=== PATIENT | male | born 1985 ===

== ENCOUNTER 2017-02-20 13:37 | Emergency (ER) | payer MEDICARE, MEDICAID ==
[2017-02-20 13:37] VITALS: BMI 27.1
[2017-02-20 13:56] VITALS: TEMP 99.1
--- NOTE | 2017-02-20 14:04 | ED PDOC ---
Arrival/HPI - General Chief Complaint: GI Problem Time Seen by Provider: 02/20/17 14:01 Historian: Patient - History of Present Illness Narrative History of Present Illness (Text): 02/20/17 14:00 Sammy Garcia is a 31 year old male, whose past medical history includes schizo- affective disorder, who presents to the emergency department complaining of vomiting x3 and diarrhea since last night. Patient reports he works at [employer] and had a meal which caused him to throw up and have abdomen pain. Ever since then he has been having diarrhea. No other complaints were made. Time/Duration: 24 hours Symptom Onset: Sudden Symptom Course: Unchanged Context: Work Past Medical History - Provider Review Nursing Documentation Reviewed: Yes - Infectious Disease Hx of Infectious Diseases: None - Psychiatric Hx Bipolar Disorder: Yes Hx Schizophrenia: Yes Hx Substance Use: Yes Other/Comment: skizo affective disorder - Anesthesia Hx Anesthesia: No Hx Anesthesia Reactions: No - Suicidal Assessment Feels Threatened In Home Enviroment: No Family/Social History - Physician Review Nursing Documentation Reviewed: Yes Family/Social History: Unknown Family HX Smoking Status: Heavy Smoker > 10 Cigarettes Daily Hx Alcohol Use: No Hx Substance Use: Yes Substance used: marijuana Allergies/Home Meds Allergies/Adverse Reactions: Allergies ibuprofen [From Motrin] Allergy (Verified 02/20/17 13:54) RASH shellfish derived Allergy (Verified 02/20/17 13:54) RASH dextromethorphan Adverse Reaction (Verified 02/20/17 13:54) RASH Home Medications: Home Meds Medication Instructions Recorded Confirmed Divalproex [Depakote ER] 1,000 mg PO DAILY 06/25/13 11/29/15 Paliperidone Palmitate [Invega 150 mg IM 11/29/15 Sustenna] Benztropine [Cogentin] 1 tab PO DAILY 02/20/17 02/20/17 Review of Systems - Review of Systems Constitutional: absent: Fevers Eyes: absent: Vision Changes Respiratory: absent: SOB Cardiovascular: absent: Chest Pain Gastrointestinal: Abdominal Pain, Diarrhea, Vomiting Genitourinary Male: absent: Dysuria Musculoskeletal: absent: Back Pain Skin: absent: Rash Neurological: absent: Headache, Dizziness Endocrine: absent: Polyuria Hemo/Lymphatic: absent: Easy Bleeding Physical Exam Vital Signs Reviewed: Yes Vital Signs Temp Pulse Resp BP Pulse Ox 02/20/17 13:52 99.1 F 107 H 18 115/67 98 Temperature: Afebrile Blood Pressure: Normal Pulse: Tachycardic Respiratory Rate: Normal Appearance: Positive for: Well-Appearing, Non-Toxic, Comfortable Pain Distress: None Mental Status: Positive for: Alert and Oriented X 3 - Systems Exam Head: Present: Atraumatic, Normocephalic Pupils: Present: PERRL Extroacular Muscles: Present: EOMI Conjunctiva: Present: Normal Mouth: Present: Moist Mucous Membranes Neck: Present: Normal Range of Motion Abdomen: Present: Tenderness (mild tenderness in epigastric region ), Normal Bowel Sounds. No: Distention, Peritoneal Signs Neurological: Present: GCS=15, CN II-XII Intact, Speech Normal Skin: Present: Warm, Dry, Normal Color. No: Rashes Psychiatric: Present: Alert, Oriented x 3, Normal Insight, Normal Concentration Medical Decision Making ED Course and Treatment: 02/20/17 Impression: 31 year old male with mild epigastric tenderness. Plan: -- Labs -- Reassess and disposition Progress Notes: - Lab Interpretations Lab Results: 02/20/17 14:00 02/20/17 14:00 Lab Results 02/20/17 14:00: Sodium 139, Potassium 4.0, Chloride 101, Carbon Dioxide 26, Anion Gap 17, BUN 21, Creatinine 0.9, Est GFR ( Amer) > 60, Est GFR (Non- Af Amer) > 60, Random Glucose 112 H, Calcium 9.4, Total Bilirubin 0.6, AST 29, ALT 38, Alkaline Phosphatase 64, Total Protein 7.6, Albumin 4.5, Globulin 3.1, Albumin/Globulin Ratio 1.5, Lipase 25 02/20/17 14:00: WBC 9.2, RBC 4.71, Hgb 14.9, Hct 43.2, MCV 91.7, MCH 31.6, MCHC 34.5, RDW 13.6, Plt Count 197, MPV 9.6, Gran % 81.5 H, Lymph % (Auto) 10.9 L, [place] % (Auto) 7.3 H, Eos % (Auto) 0.2 L, Baso % (Auto) 0.1, Gran # 7.53 H, Lymph # 1.0 L, [place] # 0.7 H, Eos # 0.0, Baso # 0.01 I have reviewed the lab results: Yes - Medication Orders Current Medication Orders: Sodium Chloride (Sodium Chloride 0.9%) 1,000 mls @ 999 mls/hr IV .Q1H1M STA Stop: 02/20/17 15:06 Last Admin: 02/20/17 14:08 Dose: 999 mls/hr eMAR Start Stop Document 02/20/17 14:08 SE (Rec: 02/20/17 14:08 SE [id number]) Intravenous Solution Start Date 02/20/17 Start Time 14:08 - Scribe Statement The provider has reviewed the documentation as recorded by the Onesimoibe Lashon Moreno Provider Scribe Attestation: All medical record entries made by the Scribe were at my direction and personally dictated by me. I have reviewed the chart and agree that the record accurately reflects my personal performance of the history, physical exam, medical decision making, and the department course for this patient. I have also personally directed, reviewed, and agree with the discharge instructions and disposition. Disposition/Present on Arrival - Present on Arrival History of DVT/PE: No History of Uncontrolled Diabetes: No Urinary Catheter: No History of Decub. Ulcer: No History Surgical Site Infection Following: None - Disposition Diagnosis: Gastroenteritis Disposition: HOME/ ROUTINE Patient Problems: Current Active Problems Problem Status Onset Gastroenteritis Acute Condition: GOOD Referrals: Stacey Mcmillan APN [Primary Care Provider] - Follow up with primary Forms: [facility] (Yemeni), WORK NOTE
[2017-02-20] MEDS ORDERED: Sodium Chloride 0.9% 1,000 ML IV STA (14:06)
[2017-02-20 14:19] LABS: BASO # 0.01 K/mm3 (0.0-2.0); BASO % 0.1 % (0.0-3.0); EOS % 0.2 % (1.5-5.0); GRAN # 7.53 (1.4-6.5); GRAN % 81.5 % (50.0-68.0); HEMATOCRIT 43.2 % (42.0-52.0); LYMPH % 10.9 % (22.0-35.0); MEAN CELL VOLUME 91.7 fl (80.0-105.0); MEAN CORPUSCULAR HEMOGLOBIN 31.6 pg (25.0-35.0); MEAN CORPUSCULAR HGB CONC 34.5 g/dl (31.0-37.0); MEAN PLATELET VOLUME 9.6 fl (7.0-11.0); MONO # 0.7 (0.1-0.6); MONO % 7.3 % (1.0-6.0); RED CELL DISTRIBUTION WIDTH 13.6 % (11.5-14.5); WHITE BLOOD COUNT 9.2 10^3/ul (4.5-11.0)
[2017-02-20 14:30] LABS: ALB/GLOB RATIO 1.5 (1.1-1.8); ALKALINE PHOSPHATASE 64 U/L (38-126); ALT/SGPT 38 U/L (7-56); AST/SGOT 29 U/L (17-59); BILIRUBIN,TOTAL 0.6 mg/dL (0.2-1.3); BLOOD UREA NITROGEN 21 mg/dL (7-21); CALCIUM 9.4 mg/dL (8.4-10.5); CARBON DIOXIDE 26 mmol/L (21-33); CHLORIDE 101 mmol/L (98-107); GFR AFRICAN-AMERICAN > 60; GLUCOSE,RANDOM 112 mg/dL (70-110); LIPASE 25 U/L (23-300); SODIUM 139 mmol/L (132-148); TOTAL PROTEIN 7.6 g/dL (5.8-8.3)
[2017-02-20 14:58] VITALS: O2SAT 100
[2017-02-20 15:03] VITALS: BP 118/65; PULSE 79; RESP 18
== END 2017-02-20 15:03 | disposition home or self-care (01) ==
LOC: ED 13:37
DX: K52.9 Noninfective gastroenteritis and colitis, unspecified (principal); F17.210 Nicotine dependence, cigarettes, uncomplicated
CPT/HCPCS: 80053; 83690; 85025; 99284; J7030; J7040

== ENCOUNTER 2017-02-24 16:31 | Emergency (ER) | payer MEDICARE, MEDICAID ==
[2017-02-24 16:32] VITALS: BMI 27.1
[2017-02-24 16:42] VITALS: RESP 18; TEMP 98; O2SAT 95
--- NOTE | 2017-02-24 16:59 | ED PDOC ---
Arrival/HPI - General Chief Complaint: Back Pain Time Seen by Provider: 02/24/17 16:41 Historian: Patient - History of Present Illness Narrative History of Present Illness (Text): 02/24/17 16:48 31yo male who present with complaint of right sided lower back pain that radiates down to his leg x 3days. Notes pain is constant and worse with ambulation and movement. He applied ice hot to area with minimum relieve. 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 He denies trauma, focal weakness, urinary/fecal incontinence, saddle anesthesia, abdominal pain, urinary symptoms . Past Medical History - Provider Review Nursing Documentation Reviewed: Yes - Infectious Disease Hx of Infectious Diseases: None - Cardiac Hx Cardiac Disorders: No - Pulmonary Hx Respiratory Disorders: No - Neurological Hx Neurological Disorder: No - HEENT Hx HEENT Disorder: No - Renal Hx Renal Disorder: No - Endocrine/Metabolic Hx Endocrine Disorders: No - Hematological/Oncological Hx Blood Disorders: No - Integumentary Hx Dermatological Disorder: No - Musculoskeletal/Rheumatological Hx Musculoskeletal Disorders: No - Gastrointestinal Hx Gastrointestinal Disorders: No - Genitourinary/Gynecological Hx Genitourinary Disorders: No - Psychiatric Hx Bipolar Disorder: Yes Hx Schizophrenia: Yes Hx Substance Use: Yes Other/Comment: skizo affective disorder - Anesthesia Hx Anesthesia: No Hx Anesthesia Reactions: No - Suicidal Assessment Feels Threatened In Home Enviroment: No Family/Social History - Physician Review Nursing Documentation Reviewed: Yes Family/Social History: Unknown Family HX Smoking Status: Light Smoker < 10 Cigarettes Daily Hx Alcohol Use: No Hx Substance Use: Yes Substance used: marijuana Allergies/Home Meds Allergies/Adverse Reactions: Allergies ibuprofen [From Motrin] Allergy (Verified 02/24/17 16:40) RASH shellfish derived Allergy (Verified 02/24/17 16:40) RASH dextromethorphan Adverse Reaction (Verified 02/24/17 16:40) RASH Home Medications: Home Meds Medication Instructions Recorded Confirmed Divalproex [Depakote ER] 1,000 mg PO DAILY 06/25/13 02/24/17 Paliperidone Palmitate [Invega 150 mg IM Q30D 11/29/15 02/24/17 Sustenna] Benztropine [Cogentin] 1 tab PO DAILY 02/20/17 02/24/17 Review of Systems - Physician Review All systems were reviewed & negative as marked: Yes - Review of Systems Constitutional: Normal Eyes: Normal ENT: Normal Respiratory: Normal Cardiovascular: Normal Gastrointestinal: Normal Genitourinary Male: Normal Musculoskeletal: Back Pain Skin: Normal Neurological: Normal Endocrine: Normal Hemo/Lymphatic: Normal Psychiatric: Normal Physical Exam Vital Signs Reviewed: Yes Vital Signs Temp Pulse Resp BP Pulse Ox 02/24/17 18:07 86 18 121/71 95 02/24/17 16:41 98.0 F 91 H 18 123/76 95 Temperature: Afebrile Blood Pressure: Normal Pulse: Regular Respiratory Rate: Normal Appearance: Positive for: Well-Appearing, Non-Toxic, Comfortable Pain Distress: None Mental Status: Positive for: Alert and Oriented X 3 - Systems Exam Head: Present: Atraumatic, Normocephalic Pupils: Present: PERRL Extroacular Muscles: Present: EOMI Conjunctiva: Present: Normal Mouth: Present: Moist Mucous Membranes Neck: Present: Normal Range of Motion Respiratory/Chest: Present: Clear to Auscultation, Good Air Exchange. No: Respiratory Distress, Accessory Muscle Use Cardiovascular: Present: Regular Rate and Rhythm, Normal S1, S2. No: Murmurs Abdomen: Present: Normal Bowel Sounds. No: Tenderness, Distention, Peritoneal Signs Back: Present: Paraspinal Tenderness (Right side), Pain with Leg Raise (right leg). No: Midline Tenderness Upper Extremity: Present: Normal Inspection. No: Cyanosis, Edema Lower Extremity: Present: Normal Inspection. No: Edema Neurological: Present: GCS=15, CN II-XII Intact, Speech Normal Skin: Present: Warm, Dry, Normal Color. No: Rashes Psychiatric: Present: Alert, Oriented x 3, Normal Insight, Normal Concentration Medical Decision Making ED Course and Treatment: 02/25/17 00:49 PT was ambulatory and neurologically intact in ED. On re evaluation he states he feels better. LS was negative He was DC home with a rx of Ibuprofen and flexeril. Advised to rest, apply warm compress/shower to area. Follow up with the PMD. TRT ED for any new or worsening symptoms. - RAD Interpretation Radiology Orders: 02/24/17 16:47 LS SPINE WITH OBL > 18 YRS OLD [RAD] Stat - Medication Orders Current Medication Orders: Discontinued Medications Cyclobenzaprine HCl (Flexeril) 10 mg PO STAT STA Stop: 02/24/17 16:49 Last Admin: 02/24/17 17:19 Dose: 10 mg Ketorolac Tromethamine (Toradol) 60 mg IM STAT STA Stop: 02/24/17 16:49 Last Admin: 02/24/17 17:19 Dose: 60 mg MAR Pain Assessment Document 02/24/17 17:19 OCS (Rec: 02/24/17 17:20 OCS [id number]) Pain Reassessment Is this a pain reassessment? Yes Sleep Is patient sleeping during reassessment? No Presence of Pain Presence of Pain Yes Pain Scale Used Pain Scale Used Numeric Location Left, Right or Bilateral Left Upper or Lower Lower Pain Location Body Site Back Description Description Constant Intensity of Pain at present 8 IM Administration Charges Document 02/24/17 17:19 OCS (Rec: 02/24/17 17:20 OCS [id number]) Injection Site MAR Injection Site Right Deltoid Charges for Administration # of IM Administrations 1 Disposition/Present on Arrival - Present on Arrival Any Indicators Present on Arrival: No History of DVT/PE: No History of Uncontrolled Diabetes: No Urinary Catheter: No History of Decub. Ulcer: No History Surgical Site Infection Following: None - Disposition Have Diagnosis and Disposition been Completed?: Yes Diagnosis: Back pain, Radiculopathy Disposition: HOME/ ROUTINE Disposition Time: 18:55 Patient Plan: Discharge Condition: STABLE Discharge Instructions (ExitCare): Back Pain (ED) Additional Instructions: Follow up with your doctor Rest and apply warm compress to area Return to ED for any new or worsening symptoms Prescriptions: Cyclobenzaprine [Cyclobenzaprine HCl] 10 mg PO TID #10 tab Naproxen [Naprosyn] 500 mg PO BID #20 tablet Ref[place]: [facility] [place] - Follow up with primary Forms: [email or web address] [facility] (Armenian), WORK NOTE
[2017-02-24 18:08] VITALS: BP 121/71; PULSE 86
--- NOTE | 2017-02-25 08:24 | RAD ---
PROCEDURE: Radiographs of the Lumbar Spine. HISTORY: back pain COMPARISON: No prior. FINDINGS: BONES: Normal alignment. No listhesis. No fracture. DISC SPACES: Unremarkable. OTHER FINDINGS: None. IMPRESSION: Unremarkable radiographs of the lumbar spine.
== END 2017-02-24 19:29 | disposition home or self-care (01) ==
LOC: ED 16:31
DX: M54.5 Low back pain (principal); M54.10 Radiculopathy, site unspecified; F17.210 Nicotine dependence, cigarettes, uncomplicated
CPT/HCPCS: 72110; 96372; 99282; J1885

== ENCOUNTER 2017-04-12 13:25 | Emergency (ER) | payer MEDICARE, MEDICAID ==
[2017-04-12 13:36] VITALS: BMI 25.0
[2017-04-12 13:40] VITALS: RESP 18; TEMP 98.9
--- NOTE | 2017-04-12 14:15 | ED PDOC ---
Arrival/HPI - General Chief Complaint: ENT Problem Time Seen by Provider: 04/12/17 14:11 Historian: Patient - History of Present Illness Narrative History of Present Illness (Text): 04/12/17 14:21 Pt p/w + 2 days onset of worsening left lower jaw/dental pain, at most pain is 8 -9/10 Time/Duration: < week Symptom Onset: Sudden Symptom Course: Worsening Quality: Cramping Severity Level: 8 Context: Home Past Medical History - Infectious Disease Hx of Infectious Diseases: None - Cardiac Hx Cardiac Disorders: No - Pulmonary Hx Respiratory Disorders: No - Neurological Hx Neurological Disorder: No - HEENT Hx HEENT Disorder: No - Renal Hx Renal Disorder: No - Endocrine/Metabolic Hx Endocrine Disorders: No - Hematological/Oncological Hx Blood Disorders: No - Integumentary Hx Dermatological Disorder: No - Musculoskeletal/Rheumatological Hx Musculoskeletal Disorders: No - Gastrointestinal Hx Gastrointestinal Disorders: No - Genitourinary/Gynecological Hx Genitourinary Disorders: No - Psychiatric Hx Bipolar Disorder: Yes Hx Schizophrenia: Yes Hx Substance Use: No Other/Comment: skizo affective disorder - Anesthesia Hx Anesthesia: No Hx Anesthesia Reactions: No - Suicidal Assessment Feels Threatened In Home Enviroment: No Family/Social History Smoking Status: Heavy Smoker > 10 Cigarettes Daily Hx Alcohol Use: No Hx Substance Use: No Substance used: marijuana Allergies/Home Meds Allergies/Adverse Reactions: Allergies ibuprofen [From Motrin] Allergy (Verified 02/24/17 16:40) RASH shellfish derived Allergy (Verified 02/24/17 16:40) RASH dextromethorphan Adverse Reaction (Verified 02/24/17 16:40) RASH Home Medications: Home Meds Medication Instructions Recorded Confirmed Divalproex [Depakote ER] 1,000 mg PO DAILY 06/25/13 04/12/17 Paliperidone Palmitate [Invega 150 mg IM Q30D 11/29/15 04/12/17 Sustenna] Benztropine [Cogentin] 1 tab PO DAILY 02/20/17 04/12/17 Physical Exam Vital Signs Temp Pulse Resp BP Pulse Ox 04/12/17 15:19 75 18 145/80 99 04/12/17 13:39 98.9 F 71 18 151/83 H 96 Medical Decision Making ED Course and Treatment: 04/12/17 14:43 Impression: dental pain/swelling i have consider all the differential diagnosis regarding pt's chief medical complaints/clinical findings, including but are not limited to: left dental pain /swelling A/P: left dental pain/swelling - pain control - abx - observe - supportive care Re-evaluation Time: 14:44 Reassessment Condition: Re-examined, Improving,but remains with symptoms - Medication Orders Current Medication Orders: Discontinued Medications Ibuprofen (Motrin Tab) 600 mg PO STAT STA Stop: 04/12/17 14:12 Last Admin: 04/12/17 14:27 Dose: Lidocaine HCl (Lidocaine 2% Viscous) 15 ml MM STAT STA Stop: 04/12/17 14:12 Last Admin: 04/12/17 14:26 Dose: 15 ml Penicillin V Potassium (Penicillin Vk Tab) 500 mg PO STAT STA PRN Reason: Protocol Stop: 04/12/17 14:13 Last Admin: 04/12/17 14:26 Dose: 500 mg Disposition/Present on Arrival - Present on Arrival Any Indicators Present on Arrival: No History of DVT/PE: No History of Uncontrolled Diabetes: No Urinary Catheter: No History of Decub. Ulcer: No History Surgical Site Infection Following: None - Disposition Have Diagnosis and Disposition been Completed?: Yes Diagnosis: Pain, dental, Dental infection Disposition: HOME/ ROUTINE Disposition Time: 14:45 Patient Plan: Discharge Condition: STABLE Discharge Instructions (ExitCare): Dental Caries (ED), Toothache (ED) Print Language: [place] Additional Instructions: Make sure to see your doctor in 1-2 days DRINK PLENTY OF FLUIDS STOP SMOKING take your medications as prescribed RETURN TO ED IF worse pain, cant breath, drooling, facial pain/swelling, persistent vomiting, high fever >101-102 for hours, altered behavior, unable to urinate, heavy/persistent bleeding, passing out, chest pain, or other medical emergencies Prescriptions: Ibuprofen [Motrin Tab] 600 mg PO TID PRN #30 tab PRN Reason: Pain, Mild (1-3) Lidocaine 2% Viscous 15 ml MM QID PRN #1 bottle PRN Reason: Pain, Mild (1-3) oxyCODONE/Acetaminophen [Percocet 5/325 mg Tab] 1 tab PO TID PRN #12 tab PRN Reason: Pain, Moderate (4-7) Penicillin VK [Penicillin VK Tab] 500 mg PO Q6H #39 tab Referrals: PCP,NO [Non-Staff] - Follow up with primary Forms: [employer] [facility] (B[place]amian), WORK NOTE
[2017-04-12 15:21] VITALS: BP 145/80; PULSE 75; O2SAT 99
== END 2017-04-12 15:21 | disposition home or self-care (01) ==
LOC: ED 13:25
DX: K08.89 Other specified disorders of teeth and supporting structures (principal); K04.7 Periapical abscess without sinus

== ENCOUNTER 2017-04-19 11:24 | Inpatient (IN) | payer MEDICARE, MEDICAID ==
[2017-04-19 11:24] VITALS: BMI 25.0
[2017-04-19] MEDS ORDERED: Oxycodone/Acetaminophen 5/325 mg Tab PO STA (11:49)
--- NOTE | 2017-04-19 11:52 | ED PDOC ---
Arrival/HPI - General Chief Complaint: Dental Pain Time Seen by Provider: 04/19/17 11:38 Historian: Patient - History of Present Illness Narrative History of Present Illness (Text): 04/19/17 11:40 A 31 year old male, with no significant past medical history, presents to the emergency department complaining of dental pain. Patient reports he had been unable to eat and pain has become unbearable. Pain and swelling has worsened since last visit here in the ER. Also, patient mentions having an upcoming dentist appointment 04/22/2017, now moved up to 05/11/2017. However, patient is unable to wait too long, so patient will be going to [place] with parents to be treated. No PMD Past Medical History - Provider Review Nursing Documentation Reviewed: Yes - Infectious Disease Hx of Infectious Diseases: None - Cardiac Hx Cardiac Disorders: No - Pulmonary Hx Respiratory Disorders: No - Neurological Hx Neurological Disorder: No - HEENT Hx HEENT Disorder: No - Renal Hx Renal Disorder: No - Endocrine/Metabolic Hx Endocrine Disorders: No - Hematological/Oncological Hx Blood Disorders: No - Integumentary Hx Dermatological Disorder: No - Musculoskeletal/Rheumatological Hx Musculoskeletal Disorders: No - Gastrointestinal Hx Gastrointestinal Disorders: No - Genitourinary/Gynecological Hx Genitourinary Disorders: No - Psychiatric Hx Psychophysiologic Disorder: Yes Hx Bipolar Disorder: Yes Hx Schizophrenia: Yes Hx Substance Use: No Other/Comment: SCHIZO AFFECTIVE - Anesthesia Hx Anesthesia: No - Suicidal Assessment Feels Threatened In Home Enviroment: No Family/Social History - Physician Review Nursing Documentation Reviewed: Yes Family/Social History: No Known Family HX Smoking Status: Heavy Smoker > 10 Cigarettes Daily Hx Alcohol Use: No Hx Substance Use: No Substance used: marijuana Allergies/Home Meds Allergies/Adverse Reactions: Allergies ibuprofen [From Motrin] Allergy (Verified 04/19/17 11:31) RASH shellfish derived Allergy (Verified 04/19/17 11:31) RASH dextromethorphan Adverse Reaction (Verified 04/19/17 11:31) RASH Home Medications: Home Meds Medication Instructions Recorded Confirmed Divalproex [Depakote ER] 1,000 mg PO DAILY 06/25/13 04/19/17 Paliperidone Palmitate [Invega 150 mg IM Q30D 11/29/15 04/19/17 Sustenna] Benztropine [Cogentin] 1 tab PO DAILY 02/20/17 04/19/17 Review of Systems - Physician Review All systems were reviewed & negative as marked: Yes - Review of Systems Constitutional: absent: Fevers, Night Sweats Respiratory: absent: SOB Musculoskeletal: Other (dental pain, facial swelling) Physical Exam Vital Signs Reviewed: Yes Vital Signs Temp Pulse Resp BP Pulse Ox 04/19/17 12:50 82 17 126/80 98 04/19/17 12:20 86 18 128/71 98 04/19/17 11:34 98.7 F 99 H 17 130/78 97 Temperature: Afebrile Blood Pressure: Normal Pulse: Regular Respiratory Rate: Normal Appearance: Positive for: Well-Appearing Pain Distress: None Mental Status: Positive for: Alert and Oriented X 3 - Systems Exam Head: Present: Tenderness (swollen lymph node tenderness), Swelling (swelling left side in jaw line), Other (patient's breath is foul-smelling due to infection) Pupils: Present: PERRL Extroacular Muscles: Present: EOMI Conjunctiva: Present: Normal Mouth: Present: Moist Mucous Membranes Neck: Present: Normal Range of Motion Respiratory/Chest: Present: Clear to Auscultation, Good Air Exchange. No: Respiratory Distress, Accessory Muscle Use Cardiovascular: Present: Regular Rate and Rhythm, Normal S1, S2. No: Murmurs Abdomen: Present: Normal Bowel Sounds. No: Tenderness, Distention, Peritoneal Signs Back: Present: Normal Inspection Upper Extremity: Present: Normal Inspection. No: Cyanosis, Edema Lower Extremity: Present: Normal Inspection. No: Edema Neurological: Present: GCS=15, CN II-XII Intact, Speech Normal Skin: Present: Warm, Dry, Normal Color. No: Rashes Psychiatric: Present: Alert, Oriented x 3, Normal Insight, Normal Concentration Medical Decision Making ED Course and Treatment: 04/19/17 11:44 Impression: 31 year old male with dental pain. Physical examination shows swelling to left side of jaw line, and tenderness to swollen lymph node. Plan: -- Neck Soft Tissue CT -- Labs -- Venous Blood Gas -- SOLU-Medrol -- Zofran -- Unasyn -- Blood Culture -- Reassess and disposition Prior Visits: Notes and results from previous visits were reviewed. Patient was last seen in the emergency department on 04/12/2017 for worsening left lower jaw pain. Patient was d/c home. Progress Notes: 04/19/2017 13:[address] IMPRESSION: There is subcutaneous edema and thickening of the fascia over the left side of the face and neck consistent with cellulitis. There is no evidence of a discrete abscess. There is no bony destruction in the maxilla or mandible to suggest a dental infection. Left-sided cervical adenopathy most likely reactive. Dictator: Wood Edmondson MD - Lab Interpretations Lab Results: 04/19/17 12:10 04/19/17 12:10 Lab Results 04/19/17 12:10: Sodium 143, Chloride 105, Potassium 4.3, Carbon Dioxide 29, Anion Gap 14, BUN 16, Creatinine 1.0, Est GFR ( Amer) > 60, Est GFR (Non- Af Amer) > 60, Random Glucose 147 H, Calcium 9.6, Total Bilirubin 0.3, AST 27, ALT 32, Alkaline Phosphatase 78, Total Protein 7.3, Albumin 4.0, Globulin 3.3, Albumin/Globulin Ratio 1.2 04/19/17 12:10: pO2 38, VBG pH 7.34, VBG pCO2 53.0, VBG HCO3 28.6 H, VBG Total CO2 30.2 H, VBG O2 Sat (Calc) 76.7 H, VBG Base Excess 1.8, VBG Potassium 4.2, Sodium 139.0, Chloride 104.0, Glucose 149 H, Lactate 1.9, FiO2 21.0, Venous Blood Potassium 4.2 04/19/17 12:10: PT 12.1, INR 1.05 04/19/17 12:10: WBC 11.2 H D, RBC 4.42, Hgb 13.4 L, Hct 40.4 L, MCV 91.4, MCH 30.3, MCHC 33.2, RDW 13.2, Plt Count 246, MPV 9.4, Gran % 76.7 H, Lymph % (Auto ) 14.6 L, [place] % (Auto) 7.8 H, Eos % (Auto) 0.6 L, Baso % (Auto) 0.3, Gran # 8.56 H, Lymph # (Auto) 1.6, [place] # (Auto) 0.9 H, Eos # (Auto) 0.1, Baso # (Auto ) 0.03 I have reviewed the lab results: Yes - RAD Interpretation Radiology Orders: 04/19/17 11:46 NECK SOFT TISSUE W/CONTRAST [CT] Stat - Medication Orders Current Medication Orders: Discontinued Medications Ampicillin Sodium/Sulbactam (Sodium 3 gm/ Sodium Chloride) 100 mls @ 100 mls/ hr IVPB STAT STA PRN Reason: Protocol Stop: 04/19/17 12:43 Last Admin: 04/19/17 12:48 Dose: 100 mls/hr eMAR Start Stop Document 04/19/17 12:48 HI (Rec: 04/19/17 12:48 HI [id number]) Intravenous Solution Start Date 04/19/17 Start Time 12:48 Methylprednisolone (Solu-Medrol) 125 mg IVP STAT STA Stop: 04/19/17 11:45 Last Admin: 04/19/17 12:11 Dose: 125 mg IVP Administration Document 04/19/17 12:11 HI (Rec: 04/19/17 12:11 HI [id number]) Charges for Administration # of IVP Administrations 1 Ondansetron HCl (Zofran Odt) 8 mg PO STAT STA Stop: 04/19/17 11:50 Last Admin: 04/19/17 12:11 Dose: 8 mg Oxycodone/Acetaminophen (Percocet 5/325 Mg Tab) 2 tab PO STAT STA Stop: 04/19/17 11:50 Last Admin: 04/19/17 12:11 Dose: 2 tab MAR Pain Assessment Document 04/19/17 12:11 HI (Rec: 04/19/17 12:11 HI [id number]) Pain Reassessment Is this a pain reassessment? No Presence of Pain Presence of Pain Yes Location Pain Location Body Site Jaw - PA / CALL CENTER REPRESENTATIVE / Resident Statement MD/DO has reviewed & agrees with the documentation as recorded. - Scribe Statement The provider has reviewed the documentation as recorded by the Rolly Tolbert Provider Scribe Attestation: All medical record entries made by the Onesimoibelisa were at my direction and personally dictated by me. I have reviewed the chart and agree that the record accurately reflects my personal performance of the history, physical exam, medical decision making, and the department course for this patient. I have also personally directed, reviewed, and agree with the discharge instructions and disposition. Disposition/Present on Arrival - Present on Arrival Any Indicators Present on Arrival: No History of DVT/PE: No History of Uncontrolled Diabetes: No Urinary Catheter: No History of Decub. Ulcer: No History Surgical Site Infection Following: None - Disposition Have Diagnosis and Disposition been Completed?: No Diagnosis: Cellulitis of face Disposition: HOSPITALIZED Disposition Time: 13:56 Patient Plan: Admission Condition: GOOD Discharge Instructions (ExitCare): Cellulitis (ED) Forms: [facility] (Tongan)
[2017-04-19] MEDS ORDERED: Iohexol 350 MG/100 ML VIAL ONE (12:08)
[2017-04-19 12:23] LABS: VENOUS BLOOD GAS BASE EXCESS 1.8 mmol/L (0.0-2.0); VENOUS BLOOD GAS PO2 38 mm/Hg (30-55); VENOUS BLOOD PH 7.34 (7.32-7.43)
[2017-04-19 12:31] LABS: ALB/GLOB RATIO 1.2 (1.1-1.8); ALT/SGPT 32 U/L (7-56); AST/SGOT 27 U/L (17-59); BLOOD UREA NITROGEN 16 mg/dL (7-21); CALCIUM 9.6 mg/dL (8.4-10.5); GFR AFRICAN-AMERICAN > 60; GFR NON-AFRICAN AMERICAN > 60
[2017-04-19 12:51] LABS: BASO # 0.03 K/mm3 (0.0-2.0); BASO % 0.3 % (0.0-3.0); EOS # 0.1 (0.0-0.7); EOS % 0.6 % (1.5-5.0); GRAN # 8.56 (1.4-6.5); GRAN % 76.7 % (50.0-68.0); HEMOGLOBIN 13.4 g/dL (14.0-18.0); LYMPH # 1.6 (1.2-3.4); LYMPH % 14.6 % (22.0-35.0); MEAN CELL VOLUME 91.4 fl (80.0-105.0); MEAN CORPUSCULAR HEMOGLOBIN 30.3 pg (25.0-35.0); MEAN CORPUSCULAR HGB CONC 33.2 g/dl (31.0-37.0); MEAN PLATELET VOLUME 9.4 fl (7.0-11.0); MONO # 0.9 (0.1-0.6); MONO % 7.8 % (1.0-6.0); RBC 4.42 10^6/uL (3.5-6.1); RED CELL DISTRIBUTION WIDTH 13.2 % (11.5-14.5); WHITE BLOOD COUNT 11.2 10^3/ul (4.5-11.0)
--- NOTE | 2017-04-19 13:11 | CT ---
PROCEDURE: CT NECK WITH CONTRAST HISTORY: VERY LARGE DENTAL/FACIAL ABSCESS COMPARISON: None TECHNIQUE: CT of the neck with intravenous contrast. Coronal and sagittal reformats generated. Intravenous contrast dose: 100 cc of Omnipaque 350 Radiation dose: DLP 511 mGy-cm This CT exam was performed using one or more of the following dose reduction techniques: Automated exposure control, adjustment of the mA and/or kV according to patient size, and/or use of iterative reconstruction technique. FINDINGS: NASOPHARYNX: There is swelling of the adenoids. The tonsils are normal in symmetrical SUPRAHYOID NECK: Unremarkable oropharynx, oral cavity, parapharyngeal space and retropharyngeal space. INFRAHYOID NECK: Unremarkable larynx, hypopharynx, and supraglottic space. Vocal cords intact. MASS: None. GLANDS: Parotid and submandibular glands unremarkable. Normal size thyroid gland, without nodule. LYMPH NODES: There is left-sided adenopathy. The largest node is seen near the angle of the mandible measuring 2.4 cm in length. There is also an enlarged node anterior to the submandibular gland measuring 12 mm in length. CERVICAL SPINE: No fracture or focal lesion. VASCULAR STRUCTURES: Unremarkable. OTHER FINDINGS: There is subcutaneous edema and thickening of the fascia over the left side of the face and neck consistent with cellulitis. There is no evidence of a discrete abscess. There is no bony destruction in the maxilla or mandible to suggest a dental infection IMPRESSION: There is subcutaneous edema and thickening of the fascia over the left side of the face and neck consistent with cellulitis. There is no evidence of a discrete abscess. There is no bony destruction in the maxilla or mandible to suggest a dental infection Left-sided cervical adenopathy most likely reactive
[2017-04-19 13:12] LABS: INR 1.05 (0.93-1.08); PROTHROMBIN TIME 12.1 SECONDS (9.4-12.5)
[2017-04-19] MEDS ORDERED: Divalproex 500 mg ER (ONCE DAILY formulation) PO SCH (18:00)
[2017-04-19] MEDS: Divalproex 500 mg DR(BID formulation) PO SCH (18:16)
[2017-04-19] MEDS ORDERED: MethylPREDNISolone 40 mg Vial IVP SCH (22:00)
[2017-04-19] MEDS: Piperacillin/Tazobact 3.375 gm 100 ML IVPB SCH (23:39)
--- NOTE | 2017-04-20 02:41 | HP ---
HISTORY OF PRESENT ILLNESS: I was called down to the ER to Sammy. He is a 31-year-old man, who was just in the emergency room about a week ago, was given antibiotics, lidocaine and steroids for a swelling in his left side of his face. He is back again today with worsening, the size of a avocado, with redness and swelling and cannot chew, has pain and got much worse on antibiotics. He has got a bad cellulitis and infection on the left side of his face. PAST MEDICAL HISTORY: Schizoaffective disorder, bipolar, psychosocial disorder. FAMILY HISTORY: No family history. SOCIAL HISTORY: He is a heavy smoker. No alcohol. He does use marijuana. ALLERGIES: HE HAS GOT ALLERGIES TO IBUPROFEN, SHELLFISH AND DEXTROMETHORPHAN, BUT HE COMES IN ON A HISTORY OF TAKING MOTRIN, ALSO COGENTIN, DEPAKOTE. I AM NOT SURE IF THAT IS REAL OR NOT, THE ALLERGIES. MEDICATIONS: He is taking Depakote, Invega once a month, Cogentin. REVIEW OF SYSTEMS: He has got no acute vision or hearing problems. He has swelling of the left side of the face. He felt it was dental, but now the whole left side of the face is like a avocado, red, it is inflamed. He was on antibiotics and steroids and lidocaine, which did not work, got worse. He can breathe. He can swallow liquids. He can chew. No chest pain, palpitations, shortness of breath or cough. No abdominal pain, nausea, vomiting, constipation, diarrhea. No leg issues or arm issues. No skin issues. PHYSICAL EXAMINATION: VITAL SIGNS: 98.7 temperature, 99 pulse, 17 respiratory rate, 130/70 blood pressure, 97% O2 sat on room air. HEENT: Head, swelling to the left side of the face and jaw lines, but the size of an avocado. Breath is foul smelling due to infection. Extraocular muscles are intact. Pupils are equal and reactive to light. NECK: Supple. Thyroid midline. No palpable appreciable lymphadenopathy. HEART: Regular rate. Normal S1, S2. LUNGS: Clear to auscultation bilaterally with fair exchange. ABDOMEN: Soft, nontender. Positive bowel sounds. No guarding, no rebound, no CVA tenderness. EXTREMITIES: No edema. NEUROLOGIC: GCS 15. Cranial nerves II-XII grossly intact. Speech is normal. Alert, oriented x3. SKIN: The left cheek is mildly red, inflamed and hot. He was given Unasyn, Percocet, Solu-Medrol, Zofran in the ER. He had 143 sodium, potassium 4.3, BUN 60, creatinine GFR greater than 60, sugar is 147, calcium is 9.6. Total bili is 0.3, AST is 27, ALT is 32, alk phos 78, total protein 7.2, albumin is 4, globulin 3.3, lactase 1.9. INR is . He has 11.2 white count, 30.4 hemoglobin, 40.4 hematocrit with [address] He had a CT scan of the head and neck, which showed there is subcutaneous edema and thickening of the fascia over the left side of the face and neck consistent with cellulitis. There is no bony destruction, left-sided cervical adenopathy, most likely reactive. He is on IV Unasyn. He will be on his medications. He is going to consult Ear, Nose and Throat and Infectious Disease. Hopefully this will get better quickly. Treated for cellulitis and mass of the left cheek, failed outpatient therapy with oral antibiotics, steroids and viscous lidocaine. Hopefully, that will improve here. Thank you very much Raymundo Harp DO MTDJanett
[2017-04-20] MEDS: Piperacillin/Tazobact 3.375 gm 100 ML IVPB SCH ×4 (06:39→23:33)
[2017-04-20 07:36] LABS: HEMOGLOBIN 12.9 g/dL (14.0-18.0); MEAN CELL VOLUME 89.6 fl (80.0-105.0); MEAN CORPUSCULAR HEMOGLOBIN 30.4 pg (25.0-35.0); MEAN CORPUSCULAR HGB CONC 33.9 g/dl (31.0-37.0); MEAN PLATELET VOLUME 9.2 fl (7.0-11.0); RBC 4.24 10^6/uL (3.5-6.1); RED CELL DISTRIBUTION WIDTH 12.9 % (11.5-14.5); WHITE BLOOD COUNT 14.1 10^3/ul (4.5-11.0)
[2017-04-20 07:45] LABS: ALB/GLOB RATIO 1.2 (1.1-1.8); ALBUMIN 3.6 g/dL (3.0-4.8); ALT/SGPT 20 U/L (7-56); AST/SGOT 23 U/L (17-59); BLOOD UREA NITROGEN 14 mg/dL (7-21); CALCIUM 9.6 mg/dL (8.4-10.5); GFR AFRICAN-AMERICAN > 60; GFR NON-AFRICAN AMERICAN > 60
[2017-04-20] MEDS: MethylPREDNISolone 40 mg Vial IVP SCH ×2 (10:48→21:50)
[2017-04-20] MEDS: Divalproex 500 mg DR(BID formulation) PO SCH ×2 (10:48→17:27)
--- NOTE | 2017-04-20 14:18 | CP.PCM.CON ---
History of Present Illness - History of Present Illness History of Present Illness: 31 year old male with no significant past medical history came in to [facility] complaining of left facial pain and left sided lower wisdom tooth pain. He has been having this pain since last week which worsened on Thursday. He was seen in the ED and was given pain meds and a shot of PCN which provided temporary relief. The next day the swelling and pain got worse. He denies fever or chills , no animal contacts or insect bites, no no headache or dizziness, no sore throat, no difficulty swallowing, no chest pain, no SOB, no cough or colds, no abdominal pain, no diarrhea, no dysuria. Infectious Diseases consult is requested to further evaluate and manage. Review of Systems - Review of Systems All systems: reviewed and no additional remarkable complaints except (as per HPI ) Past Patient History - Infectious Disease Hx of Infectious Diseases: None - Past Social History Smoking Status: Heavy Smoker > 10 Cigarettes Daily - CARDIAC Hx Cardiac Disorders: No - PULMONARY Hx Respiratory Disorders: No - NEUROLOGICAL Hx Neurological Disorder: No - HEENT Hx HEENT Problems: No - RENAL Hx Chronic Kidney Disease: No - ENDOCRINE/METABOLIC Hx Endocrine Disorders: No - HEMATOLOGICAL/ONCOLOGICAL Hx Blood Disorders: No - INTEGUMENTARY Hx Dermatological Problems: No - MUSCULOSKELETAL/RHEUMATOLOGICAL Hx Falls: Yes - GASTROINTESTINAL Hx Gastrointestinal Disorders: No - GENITOURINARY/GYNECOLOGICAL Hx Genitourinary Disorders: No - PSYCHIATRIC Hx Psychophysiologic Disorder: Yes Hx Bipolar Disorder: Yes Hx Schizophrenia: Yes Hx Substance Use: No Other/Comment: SCHIZO AFFECTIVE - SURGICAL HISTORY Hx Surgeries: No - ANESTHESIA Hx Anesthesia: No Meds Allergies/Adverse Reactions: Allergies Allergy/AdvReac Type Severity Reaction Status Date / Time ibuprofen [From Motrin] Allergy RASH Verified 04/19/17 11:31 shellfish derived Allergy RASH Verified 04/19/17 11:31 dextromethorphan AdvReac RASH Verified 04/19/17 11:31 - Medications Medications: Current Medications Acetaminophen (Tylenol 325mg Tab) 650 mg PO Q6H PRN PRN Reason: Fever >100.4 F Last Admin: 04/20/17 06:38 Dose: 650 mg Benztropine Mesylate (Cogentin) 0.5 mg PO BID YORDAN Last Admin: 04/19/17 18:16 Dose: 0.5 mg Divalproex Sodium (Depakote Dr(*Bid*)) 500 mg PO BID [facility] Last Admin: 04/19/17 18:16 Dose: 500 mg Piperacillin Sod/Tazobactam Sod (Zosyn 3.375 In Ns 100ml) 100 mls @ 200 mls/hr IVPB Q6 [facility] PRN Reason: Protocol Stop: 04/29/17 00:01 Last Admin: 04/20/17 06:39 Dose: 200 mls/hr Methylprednisolone (Solu-Medrol) 40 mg IVP Q12 [facility] Last Admin: 04/19/17 21:24 Dose: 40 mg Physical Exam - Constitutional Appears: Non-toxic - Head Exam Head Exam: NORMAL INSPECTION - ENT Exam Additional comments: left side of face with swelling - Neck Exam Neck exam: Negative for: Meningismus - Respiratory Exam Respiratory Exam: Decreased Breath Sounds - Cardiovascular Exam Cardiovascular Exam: +S1, +S2 - GI/Abdominal Exam GI & Abdominal Exam: Soft. absent: Tenderness Results - Vital Signs Recent Vital Signs: Last Vital Signs Temp 98.7 F 04/19/17 11:34 Pulse 75 04/19/17 15:36 Resp 18 04/19/17 15:36 BP 124/74 04/19/17 15:36 Pulse Ox 98 04/19/17 15:36 - Labs Result Diagrams: 04/20/17 06:40 04/20/17 06:40 Assessment & Plan - Assessment and Plan (Free Text) Plan: Assessment sepsis due to left sided facial cellulitis with probable odontogenic infection Plan Started on Zosyn and will monitor clinical response will need to see dentist will get HIV test
--- NOTE | 2017-04-20 14:35 | PN ---
DATE: SUBJECTIVE: I put him in inpatient from beginning. I do not know why he is now that was changed to inpatient. He has failed outpatient antibiotics from the ER week earlier and now the face is much worse, red, he cannot chew. He is on IV antibiotics, IV Solu-Medrol and is on clear liquids. I am awaiting for infectious disease and ENT to take a look at him. OBJECTIVE: VITAL SIGNS: His vital signs are 98.3 temperature, 80 pulse, 112/62 blood pressure, 20 respiratory rate, 94% sat on room air. GENERAL: He is less painful this morning, still swollen, still cannot chew, uncomfortable, redness a little bit better. HEENT: Head is atraumatic, normocephalic. HEART: Regular rate. LUNGS: Clear to auscultation. ABDOMEN: Soft. EXTREMITIES: No edema. LABORATORY DATA: He has a 140 sodium, potassium 4.1, BUN 14, creatinine 1.9, GFR is greater than 60, sugar is 133 from the steroids. Calcium is 9.6, total bili is 0.3, AST is 23, ALT is 22, alk phos 71, total protein 6.7. He has a 14.1 white count from the steroid, 12.9 hemoglobin, 38 hematocrit with 237 platelets. ASSESSMENT AND PLAN: He is going to have his IV Solu-Medrol decrease from 40 q.12 to 30 q.12. We will check his labs tomorrow. Went to see with Ear, Nose and Throat and ENT have to say about this left face swelling and cellulitis. He should be an inpatient from day one, failed outpatient treatment and got worse. Raymundo Harp DO
[2017-04-20 16:08] VITALS: O2SAT 96
[2017-04-21] MEDS: Piperacillin/Tazobact 3.375 gm 100 ML IVPB SCH ×4 (06:03→23:23)
[2017-04-21 07:11] LABS: MEAN CELL VOLUME 90.1 fl (80.0-105.0); MEAN CORPUSCULAR HEMOGLOBIN 29.9 pg (25.0-35.0); MEAN CORPUSCULAR HGB CONC 33.2 g/dl (31.0-37.0); MEAN PLATELET VOLUME 9.3 fl (7.0-11.0); RBC 4.35 10^6/uL (3.5-6.1); RED CELL DISTRIBUTION WIDTH 13.1 % (11.5-14.5); WHITE BLOOD COUNT 14.5 10^3/ul (4.5-11.0)
[2017-04-21 08:04] LABS: ALB/GLOB RATIO 1.1 (1.1-1.8); ALBUMIN 3.6 g/dL (3.0-4.8); ALT/SGPT 25 U/L (7-56); AST/SGOT 25 U/L (17-59); BLOOD UREA NITROGEN 16 mg/dL (7-21); CALCIUM 9.6 mg/dL (8.4-10.5); GFR AFRICAN-AMERICAN > 60; GFR NON-AFRICAN AMERICAN > 60
[2017-04-21] MEDS: Divalproex 500 mg DR(BID formulation) PO SCH ×2 (09:59→17:31)
[2017-04-21] MEDS: MethylPREDNISolone 40 mg Vial IVP SCH ×2 (09:59→22:59)
--- NOTE | 2017-04-21 13:57 | PN ---
DATE: SUBJECTIVE: I saw Sammy resting comfortably in bed. He slept fairly well. He is starting to feel a little bit better, although there is still pain and swelling is not as bad, it is less deformed size anymore, may be down to a couple of grapes, but he is doing much better. It is still painful, cannot chew. He is on liquids. PHYSICAL EXAMINATION: VITAL SIGNS: He has a 97.4 temp, 81 pulse, 107/65 blood pressure, 21 respiratory rate, 96% O2 sat on room air. HEENT: Head is atraumatic, normocephalic with a left-sided facial swelling. It is less swollen, inside the mouth is also less swollen. NECK: Supple. HEART: Regular rate. LUNGS: Clear to auscultation. ABDOMEN: Soft. EXTREMITIES: No edema. MEDICATIONS: He is currently on Cogentin; Depakote; Solu-Medrol, I have dropped down to 20 mg q. 12 from 30 mg; Tylenol and Zosyn as per Infectious Disease. LABORATORY DATA: He has a nonreactive HIV. He has a 141 sodium, potassium 4.4, BUN 16, creatinine 0.9, GFR is greater than 60, sugar is 120, calcium is 9.6. Total bili is 0.4, AST is 25, ALT is 25, alkaline phosphatase is 69, total protein is 7. He has a 14.5 white count, 13 hemoglobin, 39.2 hematocrit with 258 platelets. Continue with the IV antibiotics as per Infectious Disease. Decrease the Solu-Medrol to 20 b.i.d. Await for Ear, Nose and Throat to give us their opinion, they did not see him yet and to tablets hopefully tomorrow, discharge tomorrow if everything works out well and he continues to improve. Raymundo Harp DO MTDD
[2017-04-21 15:49] VITALS: RESP 20
--- NOTE | 2017-04-21 17:23 | CP.PCM.PN ---
Subjective - Date & Time of Evaluation Date of Evaluation: 04/21/17 Time of Evaluation: 12:40 - Subjective Subjective: Comfortable in bed, no fevers, feels better but still with pain in the teeth. Objective - Vital Signs/Intake and Output Vital Signs (last 24 hours): Temp Pulse Resp BP Pulse Ox 97.4 F L 81 21 107/65 96 04/21/17 06:00 04/21/17 06:00 04/21/17 06:00 04/21/17 06:00 04/21/17 06:00 Intake and Output: 04/21/17 04/21/17 06:59 18:59 Intake Total 660 Balance 660 - Medications Medications: Current Medications Acetaminophen (Tylenol 325mg Tab) 650 mg PO Q6H PRN PRN Reason: Fever >100.4 F Last Admin: 04/20/17 21:52 Dose: 650 mg Benztropine Mesylate (Cogentin) 0.5 mg PO BID [facility] Last Admin: 04/21/17 09:59 Dose: 0.5 mg Divalproex Sodium (Depakote Dr(*Bid*)) 500 mg PO BID [facility] Last Admin: 04/21/17 09:59 Dose: 500 mg Piperacillin Sod/Tazobactam Sod (Zosyn 3.375 In Ns 100ml) 100 mls @ 200 mls/hr IVPB Q6 [facility] PRN Reason: Protocol Stop: 04/29/17 00:01 Last Admin: 04/21/17 06:03 Dose: 200 mls/hr Methylprednisolone (Solu-Medrol) 20 mg IVP Q12 [facility] Last Admin: 04/21/17 09:59 Dose: 20 mg - Labs Labs: 04/21/17 06:30 04/21/17 06:30 PT 12.1 SECONDS (9.4-12.5) 04/19/17 12:10 INR 1.05 (0.93-1.08) 04/19/17 12:10 - Constitutional Appears: Non-toxic - Head Exam Head Exam: NORMAL INSPECTION - ENT Exam Additional comments: left sided facial swelling slowly improving Assessment and Plan - Assessment and Plan (Free Text) Plan: Assessment sepsis due to left sided facial cellulitis with probable odontogenic infection Plan continue Zosyn day 2 and will monitor clinical response will need to see dentist follow up HIV test
[2017-04-22] MEDS: Piperacillin/Tazobact 3.375 gm 100 ML IVPB SCH (06:09)
[2017-04-22 07:43] LABS: HEMOGLOBIN 13.1 g/dL (14.0-18.0); MEAN CELL VOLUME 90.8 fl (80.0-105.0); MEAN CORPUSCULAR HEMOGLOBIN 30.1 pg (25.0-35.0); MEAN CORPUSCULAR HGB CONC 33.2 g/dl (31.0-37.0); MEAN PLATELET VOLUME 9.2 fl (7.0-11.0); RBC 4.35 10^6/uL (3.5-6.1); RED CELL DISTRIBUTION WIDTH 13.2 % (11.5-14.5); WHITE BLOOD COUNT 11.1 10^3/ul (4.5-11.0)
[2017-04-22 07:54] LABS: ALB/GLOB RATIO 1.1 (1.1-1.8); ALBUMIN 3.7 g/dL (3.0-4.8); ALT/SGPT 28 U/L (7-56); AST/SGOT 24 U/L (17-59); BLOOD UREA NITROGEN 17 mg/dL (7-21); CALCIUM 9.6 mg/dL (8.4-10.5); GFR AFRICAN-AMERICAN > 60; GFR NON-AFRICAN AMERICAN > 60
[2017-04-22 08:30] VITALS: BP 116/69; PULSE 69; TEMP 99.3
--- NOTE | 2017-04-22 08:34 | CON ---
DATE: 04/21/2017 REASON FOR CONSULTATION: Facial cellulitis. CONSULTING PHYSICIAN: Dr. Marshall Huang. REFERRING PHYSICIAN: Dr. Raymundo Harp. HISTORY OF PRESENT ILLNESS: This is a 31-year-old male with past medical history of schizoaffective bipolar disorder who was admitted to [facility] as of two days ago for facial swelling to the left side of his face. The patient was here about one week ago for a similar complaint. He was found to have an infected left mandibular molar. He was placed on penicillin and pain medicines and discharged home. The patient completed the course of antibiotics, however, and made an appointment to follow up with the dentist for tooth extraction; however, due to long wait time at his dentist, he was unable to do so. After he finished the course of antibiotics, he felt the pain and swelling return to its face. Therefore, he came back to the emergency room about two days ago. He reported swelling to the left lower aspect of his face. No fevers or chills at home. In the emergency room, a CAT scan was performed of his neck which showed subcutaneous edema and thickening of the fascia over the left side of the face consistent with cellulitis and no evidence of abscess. He has been admitted to the hospital since then. He has been treated with Zosyn and methylprednisolone and reports improvement in his symptoms. Upon evaluation by Ear, Nose, and Throat Team, he reports the history as stated above. He denies any recent illnesses, fevers, chills, rhinorrhea, dysphagia, odynophagia. PAST MEDICAL HISTORY: As above. PAST SURGICAL HISTORY: No head or neck surgeries. ALLERGIES: HE HAS NO KNOWN DRUG ALLERGIES. REVIEW OF SYSTEMS: Negative as per HPI. PHYSICAL EXAMINATION: GENERAL: He is awake, and oriented x3 in no acute distress. VITAL SIGNS: Temperature of 98.7, pulse is 70, blood pressure 114/70, respirations are 20, O2 sat 96% on room air.. HEENT: Atraumatic, normocephalic. Face, there is swelling to the left mandibular and submandibular area with no erythema, no fluctuance. Mild induration palpated. Eyes: Extraocular movements are intact. Nose: Patent bilaterally. No discharge. No epistaxis. Oral cavity/Oropharynx: Lips are unremarkable. Mucosa is moist. Tongue is mobile in midline. Palate is symmetrical. Uvula is symmetrical. There is poor dentition both on the right mandibular more than the left mandibular; moreover, there is swelling to the retromolar trigone area on the left hand side. No abscesses or fluctuance is appreciated. There is no floor of mouth edema. NECK: Supple. Slightly tender to palpation on the left with some mild reactive lymphadenopathy on the left. LUNGS: Respirations are unlabored. LABORATORY DATA: Currently, his white blood cell count is 14.5, hemoglobin 13, hematocrit 39. Sodium 141, potassium 4.4, chloride 103, bicarb 27, BUN 16, creatinine 0.9, glucose is 120. MEDICATIONS: He is currently on Tylenol, Depakote, Solu-Medrol 20 mg q. 12, and Zosyn. IMAGING: There is a soft tissue of the neck performed on 04/19/2017 which reads subcutaneous edema and thickening of the fascia of the left side of the face and neck consistent with cellulitis. There is no evidence of a discrete abscess. There is no bony destruction in the maxillomandibular to suggest dental infection, left-sided cervical adenopathy most likely reactive. ASSESSMENT AND PLAN: This is a 31-year-old male who presents with left facial swelling and cellulitis, likely dental in origin. The patient currently is stable and is improving on current antibiotic and steroid regimen. At this point, continue intravenous antibiotics, Zosyn and methylprednisolone 20 mg q. 12 while the patient is in house and pain medicine as needed while he is inpatient. I will also continue soft diet and compresses to the left face, and I discussed with the patient the necessity to have his tooth extracted, and I had him call his dentist to make a followup appointment for extraction. Once the patient is stable for discharge, I would sent him home on p.o. antibiotics either Augmentin or clindamycin, Medrol Dosepak, and pain medicine as needed with proper followup with his dentist. There is no evidence of any abscess formation at this point, and he does not necessitate any drainage. The remainder of the care is as per the primary team. Thank you for this consultation. Marshall Huang DO
--- NOTE | 2017-04-23 03:22 | DS ---
HISTORY OF PRESENT ILLNESS: I saw him resting comfortably in bed. He slept well. He is going to be going this morning to his dentist for surgery for this bad infection in his mouth. He is actually doing better with the antibiotics and steroids. He will be placed on Augmentin 875 one twice a day to add to his Cogentin and his Depakote. He will be off his steroids. He can take Tylenol if he needs for pain. PHYSICAL EXAMINATION: VITAL SIGNS: He has 98.7 temperature, 70 pulse, 114/70 blood pressure, 20 respiratory rate, 96% sat on room air, HEENT: Head is atraumatic. Left side of the face is still swollen but improving, each day less swollen. Inside the mouth also little swollen, but better into the tooth area. He still is on clear liquid. He cannot chew yet. HEART: Regular rate. LUNGS: Decreased breath sounds, but clear. ABDOMEN: Soft. EXTREMITIES: No edema. LABORATORY DATA: He has a negative HIV. 14.5 white count, 13 hemoglobin, 39.2 hematocrit, 258 platelets, placed on steroids. 141 sodium, potassium 4.4, BUN 16, creatinine 0.9, GFR is greater than 60, sugar is 120, on steroids. Calcium is 9.6, total bili is 0.4, AST is 25, ALT is 25, alkaline phosphatase is 69, total protein is 7. ASSESSMENT AND PLAN: He will be discharged today. He is here for cellulitis, swelling of the left side of the face and to the jaw. We discharged him on Augmentin after discussing this with Infectious Disease, and he will follow with his dentist this morning for his surgical procedure. Raymundo Harp DO BRAVO
== END 2017-04-22 11:41 | disposition home or self-care (01) | DRG 603 ==
LOC: ED 11:24 → ERH 13:51 → 5RSO 17:18 → OBSVTOIN 04-20 08:47
PROVIDERS: ADMIT Family Medicine; ATTEND Family Medicine
DX: L03.211 Cellulitis of face (principal); F25.9 Schizoaffective disorder, unspecified; F17.210 Nicotine dependence, cigarettes, uncomplicated; F12.90 Cannabis use, unspecified, uncomplicated; K08.89 Other specified disorders of teeth and supporting structures